=== PATIENT | male | born 1935 | race Caucasian/White ===

== ENCOUNTER → 2019-11-18 | Outpatient (CLI) | payer MEDICARE ==
[~2019-11-18] MED LIST: REGADENOSON 0.4 MG/5 ML SYRINGE ONE
== END | disposition home or self-care (01) ==
LOC: CFH 07:33
PROVIDERS: ATTEND Internal Medicine Cardiovascular Disease
DX: I48.0 Paroxysmal atrial fibrillation (principal); I10 Essential (primary) hypertension
CPT/HCPCS: 78452; 93017; A9502; J2785

== ENCOUNTER → 2020-02-25 | Outpatient (CLI) | payer MEDICARE ==
[~2020-02-25] MED LIST changes: +GADOTERATE 7.5 MMOL/15 ML SYR ONE; -REGADENOSON 0.4 MG/5 ML SYRINGE ONE
== END | disposition home or self-care (01) ==
LOC: RAD 13:41
PROVIDERS: ATTEND Internal Medicine Hematology & Oncology
DX: C18.2 Malignant neoplasm of ascending colon (principal); M47.816 Spondylosis without myelopathy or radiculopathy, lumbar region; M51.25 Other intervertebral disc displacement, thoracolumbar region; M16.0 Bilateral primary osteoarthritis of hip; M51.36 Other intervertebral disc degeneration, lumbar region; K57.30 Diverticulosis of large intestine without perforation or abscess without bleeding; R19.03 Right lower quadrant abdominal swelling, mass and lump; M48.07 Spinal stenosis, lumbosacral region; M62.81 Muscle weakness (generalized); D50.9 Iron deficiency anemia, unspecified; M25.78 Osteophyte, vertebrae; N28.1 Cyst of kidney, acquired; Z85.038 Personal history of other malignant neoplasm of large intestine
CPT/HCPCS: 72158; 72197; 73720; A9575

== ENCOUNTER 2021-03-05 10:41 | Day surgery (SDC) | payer MEDICARE ==
[~2021-03-05] VITALS: Ht 182.9 cm; Wt 58.5 kg
[~2021-03-05 10:41] MED LIST changes: +FERR29CA PO; +FINA5TAB4 PO; -GADOTERATE 7.5 MMOL/15 ML SYR ONE; +LEVO88TA4 PO; +TAMS-11 PO
[2021-03-05 11:26] VITALS: BP 134/75
[2021-03-05] MEDS ORDERED: SODIUM CHLORIDE 0.9% IV SCH (12:00)
[2021-03-05] MEDS ORDERED: VANCOMYCIN 1,000 MG in SODIUM CHLORIDE 0.9% 200 ML IV ONE (12:00)
[2021-03-05] MEDS ORDERED: VANCOMYCIN IV SCH (12:00)
[2021-03-05] MEDS ORDERED: SODIUM CHLORIDE 0.9% 1,000 ML IV SCH (12:00)
[2021-03-05] MEDS ORDERED: VANCOMYCIN 1,000 MG in SODIUM CHLORIDE 0.9% 100 ML IV ONE (12:00)
[2021-03-05] MEDS ORDERED: LIDOCAINE 1%, 20ML ONE (12:53)
[2021-03-05] MEDS ORDERED: LIDOCAINE 1%, 10ML ONE (12:53)
[2021-03-05] MEDS ORDERED: FENTANYL PF 100 MCG/2ML ONE (13:32)
[2021-03-05] MEDS ORDERED: FLUMAZENIL 0.1 MG/1 ML, 5ML ONE (13:32)
[2021-03-05] MEDS ORDERED: NALOXONE 1 MG/ML, 2ML ONE (13:32)
[2021-03-05] MEDS ORDERED: MIDAZOLAM 1 MG/ML, 5ML ONE (13:32)
== END 2021-03-05 15:55 | disposition home or self-care (01) ==
LOC: OUT 10:41
PROVIDERS: ATTEND Internal Medicine Hematology & Oncology
DX: C18.2 Malignant neoplasm of ascending colon (principal); D64.9 Anemia, unspecified; I10 Essential (primary) hypertension; E03.9 Hypothyroidism, unspecified; I48.91 Unspecified atrial fibrillation; Z79.01 Long term (current) use of anticoagulants; Z79.890 Hormone replacement therapy; Z79.899 Other long term (current) drug therapy; Z88.0 Allergy status to penicillin; Z90.49 Acquired absence of other specified parts of digestive tract; Z98.890 Other specified postprocedural states; Z80.9 Family history of malignant neoplasm, unspecified
CPT/HCPCS: 36561; 76937; 77001; 99156; 99157; C1788; C1894; J1642; J2250; J3010; J3370; J7030; J2310